=== PATIENT | male | born 1990 | race Caucasian/White ===

== ENCOUNTER 2018-05-06 09:35 | Emergency (ER) | payer OTHER ==
[2018-05-06 10:25] VITALS: BP 139/82
--- NOTE | 2018-05-06 11:45 | UC ---
Nausea/Vomiting/Diarrhea HPI - HPI Summary HPI Summary: 27-year-old male comes in with a chief complaint of diarrhea. About 5 days ago patient had some nausea and vomiting that moved onto diarrhea. He's had abdominal cramping. No abdominal pain right now. Has not seen any blood in the stool. 2 days ago he was going is many as 10 times a day. Been watery. No fevers. No problems with urination. Overall is improving is having less diarrhea. He had a history of ulcerative colitis when he was 19. He is not any medications at this time. - History of Current Complaint Chief Complaint: UCGI Stated Complaint: STOMACH COMPLAINT Time Seen by Provider: 05/06/18 11:34 Pain Intensity: 0 - Allergies/Home Medications Allergies/Adverse Reactions: Allergies Allergy/AdvReac Type Severity Reaction Status Date / Time ibuprofen [From Motrin] Allergy Eyes Verified 05/06/18 10:21 Itchy/Swollen/Red/Watery Home Medications: Home Medications NK [No Home Medications Reported] 05/06/18 [History Confirmed 05/06/18] PMH/Surg Hx/FS Hx/Imm Hx Previously Healthy: Yes GI/ History: Other - ULERATIVE COLITIS - Surgical History Surgical History: Yes Surgery Procedure, Year, and Place: left knee reconstruction 2016 - Family History Known Family History: Positive: Non-Contributory - Social History Alcohol Use: Rare Substance Use Type: Marijuana Smoking Status (MU): Never Smoked Tobacco Review of Systems All Other Systems Reviewed And Are Negative: Yes Constitutional: Positive: Negative Skin: Positive: Negative Eyes: Positive: Negative ENT: Positive: Negative Respiratory: Positive: Negative Cardiovascular: Positive: Negative Gastrointestinal: Positive: Abdominal Pain, Vomiting, Diarrhea Genitourinary: Positive: Negative Motor: Positive: Negative Neurovascular: Positive: Negative Musculoskeletal: Positive: Negative Neurological: Positive: Negative Psychological: Positive: Negative Is Patient Immunocompromised?: No Physical Exam Triage Information Reviewed: Yes Appearance: Well-Appearing, No Pain Distress, Well-Nourished Vital Signs: Initial Vital Signs Temp 97.4 F 05/06/18 10:18 Pulse 79 05/06/18 10:18 Resp 15 05/06/18 10:18 BP 139/82 05/06/18 10:18 Pulse Ox 99 05/06/18 10:18 Vital Signs Reviewed: Yes Eye Exam: Normal Eyes: Positive: Conjunctiva Clear ENT Exam: Normal ENT: Positive: Hearing grossly normal Respiratory Exam: Normal Respiratory: Positive: Lungs clear, Normal breath sounds, No respiratory distress Cardiovascular: Positive: RRR Abdomen Description: Positive: Nontender, Soft Bowel Sounds: Positive: Present Musculoskeletal Exam: Normal Musculoskeletal: Positive: Strength Intact, ROM Intact Neurological Exam: Normal Neurological: Positive: Alert, Muscle Tone Normal Psychological Exam: Normal Psychological: Positive: Age Appropriate Behavior Skin Exam: Normal Naus/Vom/Diarrhea Course/Dx - Course Course Of Treatment: Overall the patient's symptoms are improving. His abdomen is soft and nontender on exam. We'll go ahead and send stool to the lab. Patient should continue symptomatic treatment. He knows to not take Imodium. If he worsens he needs to get reevaluated right away. - Differential Dx/Diagnosis Provider Diagnosis: Diarrhea Condition At Discharge: Stable Discharge - Sign-Out/Discharge Documenting (check all that apply): Patient Departure All imaging exams completed and their final reports reviewed: No Studies - Discharge Plan Condition: Stable Disposition: HOME Patient Education Materials: Acute Diarrhea (ED) Forms: *Work Release Referrals: [facility] [Outside] [facility] [place] [facility] [Outside] - Billing Disposition and Condition Condition: STABLE Disposition: Home
== END 2018-05-06 12:01 | disposition home or self-care (01) ==
LOC: UCCORT 09:35
DX: R19.7 Diarrhea, unspecified (principal); Z88.8 Allergy status to other drugs, medicaments and biological substances; Z87.19 Personal history of other diseases of the digestive system
CPT/HCPCS: 82270; 83630; 87045; 87046; 87328; 87329; 87493; 87899; 99201; G0463